=== PATIENT | female | born 1990 | race Asian ===

== ENCOUNTER 2020-07-06 06:30 | Day surgery (SDC) | payer MEDICAID ==
[~2020-07-06] VITALS: Ht 157.5 cm; Wt 76.1 kg
[2020-07-06] VITALS (17 sets, daily range): BP systolic 116–142; BP diastolic 71–89
[2020-07-06] MEDS ORDERED: normal saline 1000ml 1,000 ML IV PRN (06:50)
[2020-07-06 07:23] LABS: BASOPHILS % (AUTO) 0.4 % (0-1); EOSINOPHILS # (AUTO) 0.3 X10'3 (0-0.9); EOSINOPHILS % (AUTO) 2.4 % (0-6); HEMATOCRIT 31.2 % (35.0-45.0); HEMOGLOBIN 10.2 g/dl (12.0-16.0); LYMPHOCYTES # (AUTO) 1.7 X10'3 (1.1-4.8); LYMPHOCYTES % (AUTO) 14.1 % (21-51); MEAN CORPUSCULAR HEMOGLOBIN 26.4 PG (27.0-31.0); MEAN CORPUSCULAR HGB CONC 32.7 g/dL (33.0-36.5); MEAN CORPUSCULAR VOLUME 80.7 FL (78-98); MONOCYTES # (AUTO) 0.9 X10'3 (0-0.9); MONOCYTES % (AUTO) 7.1 % (2-12); NEUTROPHILS # (AUTO) 9.2 X10'3 (1.8-7.7); PLATELET COUNT 470 X10'3 (140-440); RED BLOOD COUNT 3.86 X10'6 (4.20-5.60); RED CELL DISTRIBUTION WIDTH 13.4 % (11.5-14.5); WHITE BLOOD COUNT 12.1 X10'3 (4.5-11.0)
[2020-07-06] MEDS ORDERED: INSU100C10 SQ (07:58)
[2020-07-06] MEDS ORDERED: CHOL10006 PO (07:58)
[2020-07-06] MEDS ORDERED: INSU100I31 SQ (07:58)
[2020-07-06] MEDS ORDERED: normal saline 1000ml 1,000 ML IV SCH (09:35)
[2020-07-06] MEDS ORDERED: midazolam 2 mg/2 ml injection ONE (11:24)
[2020-07-06] MEDS ORDERED: fentaNYL/PF 50MCG/1 ML 2ML syringe ONE (11:25)
== END 2020-07-06 14:55 | disposition home or self-care (01) ==
LOC: SSTAY O 06:30
PROVIDERS: ATTEND Radiology Diagnostic Radiology
DX: E11.22 Type 2 diabetes mellitus with diabetic chronic kidney disease (principal); I12.9 Hypertensive chronic kidney disease with stage 1 through stage 4 chronic kidney disease, or unspecified chronic kidney disease; N18.4 Chronic kidney disease, stage 4 (severe); J84.10 Pulmonary fibrosis, unspecified
CPT/HCPCS: 36415; 50200; 77012; 82948; 85025; 85610; J2250; J3010; J7030; 99152; 99153

== ENCOUNTER 2021-09-04 08:06 | Day surgery (SDC) | payer MEDICAID ==
[2021-08-30 14:55] LABS: BASOPHILS % (AUTO) 0.3 % (0-1); EOSINOPHILS # (AUTO) 0.5 X10'3 (0-0.9); EOSINOPHILS % (AUTO) 4.1 % (0-6); LYMPHOCYTES # (AUTO) 3.2 X10'3 (1.1-4.8); LYMPHOCYTES % (AUTO) 24.4 % (21-51); MEAN CORPUSCULAR HEMOGLOBIN 27.4 PG (27.0-31.0); MEAN CORPUSCULAR HGB CONC 32.9 g/dL (33.0-36.5); MEAN CORPUSCULAR VOLUME 83.3 FL (78-98); MEAN PLATELET VOLUME 7.2 FL (7.4-10.4); MONOCYTES # (AUTO) 0.8 X10'3 (0-0.9); MONOCYTES % (AUTO) 5.8 % (2-12); NEUTROPHILS # (AUTO) 8.5 X10'3 (1.8-7.7); NEUTROPHILS % (AUTO) 65.4 % (42-75); PRE OP HEMATOCRIT 28.8 % (35.0-45.0); PRE OP PLATELET COUNT 372 X10'3 (140-440); RED BLOOD COUNT 3.46 X10'6 (4.20-5.60); RED CELL DISTRIBUTION WIDTH 14.5 % (11.5-14.5)
[2021-08-30 15:02] LABS: PRE OP HEMOGLOBIN 9.5 g/dL (12.0-16.0)
[2021-08-30 15:07] LABS: ALBUMIN/GLOBULIN RATIO 0.6 (1.1-1.5); ALKALINE PHOSPHATASE 100 IU/L (46-116); BLOOD UREA NITROGEN 53 MG/DL (7-18); BUN/CREATININE RATIO 14.2 (6.6-38.0); CALCIUM 8.3 MG/DL (8.5-10.1); CHLORIDE 108 MMOL/L (99-107); CREATININE 3.72 MG/DL (0.40-0.90); PRE OP ALT 15 U/L (30-65); PRE OP ANION GAP 13 (8-16); PRE OP AST 16 U/L (10-37); PRE OP BILIRUB, TOTAL 0.1 MG/DL (0.0-1.0); PRE OP POTASSIUM 5.5 MMOL/L (3.4-5.1); PRE OP SODIUM 141 MMOL/L (135-145); TOTAL CARBON DIOXIDE 19.8 MMOL/L (24-32); TOTAL PROTEIN 8.1 G/DL (6.4-8.2); eGFR 14 ML/MIN
[2021-08-30 15:10] LABS: PRE OP GLUCOSE 232 MG/DL (70-104)
[2021-08-30 15:33] LABS: COLOR,URINE STRAW (Yellow); UA COLLECTION TYPE CLN CATCH MIDSTREAM
[2021-08-30 15:34] LABS: CLARITY,URINE SLIGHTLY CLOUDY (Clear); GLUCOSE, URINE 250 mg/dl (Neg); KETONES,URINE NEGATIVE (Neg); LEUKOCYTE ESTERASE ,URINE NEGATIVE (Neg); NITRITES, URINE NEGATIVE (Neg); OCCULT BLOOD,URINE MODERATE (Neg); PROTEIN,URINE 300 mg/dl (Neg); UROBILINOGEN,URINE 0.2 E.U/dL (0.2-1.0)
[2021-08-30 15:51] LABS: BACTERIA,URINE 1+ /HPF (Neg); MUCUS STRANDS NONE SEEN /LPF (Neg); SQUAMOUS EPITHELIAL CELL,UR MODERATE /LPF (FEW); WBC,URINE 0-4 /HPF (0-4)
[~2021-09-04] VITALS: Ht 157.5 cm; Wt 84.5 kg
[~2021-09-04 08:06] MED LIST: ATOR-2 PO; CHOL10006 PO; DILT-36 PO; INSU100C10 SQ; INSU100I31 SQ; cefazolin/dext.iso 2gm/50ml 50 ML IV ONE; famotidine 20mg tablet PO ONE; ringers solution, lacted 1,000 ML IV SCH
[2021-09-04 08:45] VITALS: BP 121/72
[2021-09-04] MEDS ORDERED: normal saline 500ml IV soln 500 ML IV SCH (09:05)
[2021-09-04 09:26] LABS: BASOPHILS % (AUTO) 0.4 % (0-1); EOSINOPHILS # (AUTO) 0.5 X10'3 (0-0.9); LYMPHOCYTES % (AUTO) 23.6 % (21-51); MEAN CORPUSCULAR HEMOGLOBIN 26.9 PG (27.0-31.0); MEAN CORPUSCULAR HGB CONC 32.5 g/dL (33.0-36.5); MEAN CORPUSCULAR VOLUME 82.9 FL (78-98); MEAN PLATELET VOLUME 7.3 FL (7.4-10.4); MONOCYTES # (AUTO) 0.7 X10'3 (0-0.9); MONOCYTES % (AUTO) 5.5 % (2-12); NEUTROPHILS # (AUTO) 8.5 X10'3 (1.8-7.7); NEUTROPHILS % (AUTO) 66.5 % (42-75); PRE OP HEMATOCRIT 27.7 % (35.0-45.0); PRE OP PLATELET COUNT 330 X10'3 (140-440); RED BLOOD COUNT 3.34 X10'6 (4.20-5.60); RED CELL DISTRIBUTION WIDTH 14.2 % (11.5-14.5)
[2021-09-04 10:25] LABS: URINE HCG NEGATIVE (NEG)
[2021-09-04 10:26] LABS: CLARITY,URINE SLIGHTLY CLOUDY (Clear); COLOR,URINE YELLOW (Yellow); GLUCOSE, URINE 250 mg/dl (Neg); PROTEIN,URINE >=1000 mg/dl (Neg); UA COLLECTION TYPE CLN CATCH MIDSTREAM
[2021-09-04 10:27] LABS: KETONES,URINE NEGATIVE (Neg); LEUKOCYTE ESTERASE ,URINE NEGATIVE (Neg); NITRITES, URINE NEGATIVE (Neg); OCCULT BLOOD,URINE MODERATE (Neg); UROBILINOGEN,URINE 0.2 E.U/dL (0.2-1.0)
[2021-09-04 10:42] LABS: BACTERIA,URINE 2+ /HPF (Neg); MUCUS STRANDS FEW /LPF (Neg); RBC,URINE 0-2 /HPF (0-2); SQUAMOUS EPITHELIAL CELL,UR MODERATE /LPF (FEW); WBC,URINE 0-4 /HPF (0-4)
[2021-09-04 10:43] LABS: HYALINE CASTS 0-3 /LPF (NEGATIVE)
[2021-09-04] MEDS ORDERED: ondansetron/PF 4mg/2ml inj IV PRN (11:20)
[2021-09-04] MEDS ORDERED: hydrALAZINE 20mg/ml inj. IV PRN (11:20)
[2021-09-04] MEDS ORDERED: fentaNYL/PF 50MCG/1 ML 2ML syringe IV PRN ×2 (11:20)
[2021-09-04] MEDS ORDERED: ringers solution, lacted 1,000 ML IV SCH (11:20)
[2021-09-04] MEDS ORDERED: labetalol 20mg/4ml (5mg/ml) syringe IV PRN (11:20)
[2021-09-04] MEDS ORDERED: morphine 4 MG/ML inj SYRINge IV PRN (11:20)
[2021-09-04] MEDS ORDERED: morphine 2 MG/ML inj. syringe IV PRN (11:20)
[2021-09-04] MEDS ORDERED: LIDOCAINE 1%/EPI 1:100,000 inj. 10 ML multi-dose vial ONE (11:28)
[2021-09-04] MEDS ORDERED: BUPIVAcaine/PF 2.5mg/ml (0.25%) 10ml vial ONE (11:28)
[2021-09-04] MEDS ORDERED: heparin 10,000 units/1 ML INJ ONE (11:28)
[2021-09-04] MEDS ORDERED: sevoflurane 250ml liquid IH ONE (11:50)
[2021-09-04] MEDS ORDERED: fentaNYL/PF 50MCG/1 ML 2ML syringe ONE (12:06)
[2021-09-04] MEDS ORDERED: midazolam 1 mg/ML 2ml injection ONE (12:06)
[2021-09-04] MEDS ORDERED: ondansetron/PF 4mg/2ml inj ONE (12:15)
[2021-09-04] MEDS ORDERED: propofol inj 20 ML IV ONE (12:40)
[2021-09-04] MEDS ORDERED: ePHEDrine 50MG/ML INJ. ONE (12:40)
[2021-09-04] MEDS ORDERED: LIDOcaine 2% (20mg/ml) 5ml vial ONE (12:40)
[2021-09-04 13:07] VITALS: BP 160/70
--- NOTE | 2021-09-04 13:07 | NUR ---
ASSUME CARE PT AWAKE TO NAME VSS NO DISTRESS DENIES PAIN IV 20G TO RIGHT HAND PATIENT IVF INFUSING ON PUMP AT TKO WITHOUT DIFF. BULKY DRESSING TO RIGHT ARM CDI, +CMS TO THE RIGHT HAND AND FINGERS. CONT TO MONITOR. Addendum: 09/04/21 at 1339 by Josephine Fay RN Amended: Links added.
[2021-09-04 13:20] VITALS: BP 153/84
[2021-09-04 13:30] VITALS: BP 146/88
--- NOTE | 2021-09-04 13:39 | NUR ---
PT MORE AWAKE PLACED ON RA SAT 97% DENIES PAIN ABLE TO ASSESS A B/T TO THE RIGHT ARM DRESSING CONT CDI. PT C/O NAUSEA ZOFRAN 4MG GIVEN CONT TO MONITOR. Addendum: 09/04/21 at 1341 by Josephine Fay RN Amended: Links added.
[2021-09-04 13:40] VITALS: BP 145/79
[2021-09-04 13:50] VITALS: BP 167/75
--- NOTE | 2021-09-04 13:55 | NUR ---
PT MORE AWAKE VSS NO PAIN STATES FEELS BETTER KELLY CRACKERS MOTHER AT BEDSIDE DC INSTR GIVEN NO ?'S OR CONCERNS MEETS CRITERIA TO GO HOME. Addendum: 09/04/21 at 1356 by Josephine Fay RN Amended: Links added.
== END 2021-09-04 14:07 | disposition home or self-care (01) ==
LOC: PAS 08:06
PROVIDERS: ATTEND Surgery
DX: E11.22 Type 2 diabetes mellitus with diabetic chronic kidney disease (principal); I12.0 Hypertensive chronic kidney disease with stage 5 chronic kidney disease or end stage renal disease; N18.6 End stage renal disease; D64.9 Anemia, unspecified; F15.10 Other stimulant abuse, uncomplicated; E55.9 Vitamin D deficiency, unspecified; F17.210 Nicotine dependence, cigarettes, uncomplicated; Z90.49 Acquired absence of other specified parts of digestive tract; Z98.890 Other specified postprocedural states; Z86.19 Personal history of other infectious and parasitic diseases; Z88.8 Allergy status to other drugs, medicaments and biological substances; Z79.4 Long term (current) use of insulin; Z79.899 Other long term (current) drug therapy; Z83.3 Family history of diabetes mellitus; Z82.49 Family history of ischemic heart disease and other diseases of the circulatory system
CPT/HCPCS: 36415; 36818; 80053; 81001; 81025; 82948; 85025; 93005; J1644; J2001; J2250; J2405; J2704; J3010; J3490; J7040; U0003; U0005; Z7506; Z7508; Z7512; A4618; A6449; A7000; J7120

== ENCOUNTER 2023-04-12 15:22 | Emergency (ER) | payer MEDICAID ==
[~2023-04-12] VITALS: Ht 157.5 cm; Wt 87.4 kg
[~2023-04-12 15:22] MED LIST changes: +BLOO-1718 TOP; +CALC0.5C8 PO; +HYDR-4069 PO; +MAGN400C PO; +PANT40TA54 PO; +SODI650T29 PO; +TRET20CR35 TOP; +[UNRECOGNIZED DRUG - CODE]; -cefazolin/dext.iso 2gm/50ml 50 ML IV ONE; -famotidine 20mg tablet PO ONE; -ringers solution, lacted 1,000 ML IV SCH
[2023-04-12 15:24] VITALS: BP 177/80
[2023-04-12] MEDS ORDERED: PANT-47 PO (22:06)
[2023-04-12] MEDS ORDERED: SUCR1TAB PO (22:06)
== END 2023-04-12 16:38 | disposition left against medical advice (07) ==
LOC: ER 15:22
DX: R10.9 Unspecified abdominal pain (principal); Z53.21 Procedure and treatment not carried out due to patient leaving prior to being seen by health care provider
CPT/HCPCS: 74176; 99281

== ENCOUNTER 2023-04-14 06:10 | Emergency (ER) | payer MEDICAID ==
[~2023-04-14] VITALS: Ht 157.5 cm; Wt 85.5 kg
[~2023-04-14 06:10] MED LIST changes: +PANT-47 PO; +SUCR1TAB PO
[2023-04-14 06:41] LABS: BASOPHILS % (AUTO) 0.2 % (0-1); EOSINOPHILS # (AUTO) 0.1 X10'3 (0-0.9); EOSINOPHILS % (AUTO) 0.5 % (0-6); HEMATOCRIT 31.8 % (35.0-45.0); HEMOGLOBIN 10.4 g/dl (12.0-16.0); LYMPHOCYTES # (AUTO) 2.6 X10'3 (1.1-4.8); LYMPHOCYTES % (AUTO) 15.3 % (21-51); MEAN CORPUSCULAR HEMOGLOBIN 27.6 PG (27.0-31.0); MEAN CORPUSCULAR HGB CONC 32.7 g/dL (33.0-36.5); MEAN CORPUSCULAR VOLUME 84.3 FL (78-98); MEAN PLATELET VOLUME 7.2 FL (7.4-10.4); MONOCYTES # (AUTO) 0.7 X10'3 (0-0.9); MONOCYTES % (AUTO) 4.2 % (2-12); NEUTROPHILS # (AUTO) 13.7 X10'3 (1.8-7.7); NEUTROPHILS % (AUTO) 79.8 % (42-75); PLATELET COUNT 330 X10'3 (140-440); RED BLOOD COUNT 3.78 X10'6 (4.20-5.60); RED CELL DISTRIBUTION WIDTH 15.5 % (11.5-14.5); WHITE BLOOD COUNT 17.1 X10'3 (4.5-11.0)
[2023-04-14 07:36] LABS: ALBUMIN 3.7 G/DL (3.4-5.0); ALBUMIN/GLOBULIN RATIO 0.9 (1.1-1.5); ANION GAP 16 (8-16); ASPARTATE AMINO TRANSFERASE 21 U/L (10-37); BILIRUBIN,TOTAL 0.4 MG/DL (0.1-1.0); BLOOD UREA NITROGEN 37 MG/DL (7-18); BUN/CREATININE RATIO 9.2 (10.0-20.0); CALCIUM 8.3 MG/DL (8.5-10.1); CHLORIDE 100 MMOL/L (99-107); CREATININE 4.01 MG/DL (0.40-0.90); GLUCOSE 172 MG/DL (70-104); POTASSIUM 3.7 MMOL/L (3.5-5.1); SODIUM 134 MMOL/L (135-145); TOTAL CARBON DIOXIDE 17.6 MMOL/L (24-32); eGFR 13 ML/MIN
[2023-04-14 07:37] LABS: ALANINE AMINOTRANSFERASE 13 U/L (12-78); ALKALINE PHOSPHATASE 83 IU/L (46-116)
[2023-04-14] MEDS ORDERED: diphenhydrAMINE 50 mg/ml inj IV ONE (08:00)
[2023-04-14] MEDS ORDERED: normal saline 1000ML IV soln IVB ONE (08:00)
[2023-04-14] MEDS ORDERED: LORazepam 2 mg/ml vial IV ONE (08:00)
[2023-04-14] MEDS ORDERED: haloperidol lactate 5mg/ml inj IM ONE (08:00)
[2023-04-14] MEDS ORDERED: LIDOcaine Viscous 15ml cup MM ONE (09:00)
[2023-04-14 11:19] VITALS: BP 155/85
[2023-04-15] MEDS ORDERED: HYDR-4070 PO (12:50)
[2023-04-15] MEDS ORDERED: METO5TAB85 PO (12:53)
[2023-04-15] MEDS ORDERED: LORA-269 PO (13:00)
== END 2023-04-14 11:53 | disposition home or self-care (01) ==
LOC: ER 06:11
DX: R10.13 Epigastric pain (principal); R11.2 Nausea with vomiting, unspecified; E11.22 Type 2 diabetes mellitus with diabetic chronic kidney disease; N18.9 Chronic kidney disease, unspecified; F15.90 Other stimulant use, unspecified, uncomplicated; Z72.89 Other problems related to lifestyle; Z90.49 Acquired absence of other specified parts of digestive tract; Z91.018 Allergy to other foods; Z79.4 Long term (current) use of insulin; Z79.899 Other long term (current) drug therapy
CPT/HCPCS: 36415; 71045; 80053; 82948; 83605; 83880; 84145; 84484; 85025; 93005; 96361; 96372; 96374; 96375; 99285; J1200; J1630; J2060; J7030; 96376

== ENCOUNTER 2023-04-15 10:35 | Emergency (ER) | payer MEDICAID ==
[~2023-04-15] VITALS: Ht 157.5 cm; Wt 100.0 kg
[2023-04-15 11:17] LABS: BASOPHILS % (AUTO) 0.3 % (0-1); EOSINOPHILS # (AUTO) 0.1 X10'3 (0-0.9); EOSINOPHILS % (AUTO) 0.9 % (0-6); HEMATOCRIT 33.4 % (35.0-45.0); HEMOGLOBIN 10.8 g/dl (12.0-16.0); LYMPHOCYTES # (AUTO) 2.4 X10'3 (1.1-4.8); LYMPHOCYTES % (AUTO) 15.4 % (21-51); MEAN CORPUSCULAR HEMOGLOBIN 27.7 PG (27.0-31.0); MEAN CORPUSCULAR HGB CONC 32.4 g/dL (33.0-36.5); MEAN CORPUSCULAR VOLUME 85.6 FL (78-98); MEAN PLATELET VOLUME 6.9 FL (7.4-10.4); MONOCYTES # (AUTO) 0.9 X10'3 (0-0.9); MONOCYTES % (AUTO) 5.7 % (2-12); NEUTROPHILS % (AUTO) 77.7 % (42-75); PLATELET COUNT 336 X10'3 (140-440); RED BLOOD COUNT 3.91 X10'6 (4.20-5.60); RED CELL DISTRIBUTION WIDTH 15.6 % (11.5-14.5); WHITE BLOOD COUNT 15.4 X10'3 (4.5-11.0)
[2023-04-15 11:30] LABS: ALANINE AMINOTRANSFERASE 11 U/L (12-78); ALBUMIN 3.9 G/DL (3.4-5.0); ALBUMIN/GLOBULIN RATIO 0.9 (1.1-1.5); ALKALINE PHOSPHATASE 85 IU/L (46-116); ANION GAP 14 (8-16); ASPARTATE AMINO TRANSFERASE 21 U/L (10-37); BILIRUBIN,TOTAL 0.4 MG/DL (0.1-1.0); BLOOD UREA NITROGEN 32 MG/DL (7-18); CALCIUM 8.3 MG/DL (8.5-10.1); CHLORIDE 101 MMOL/L (99-107); CREATININE 3.98 MG/DL (0.40-0.90); GLUCOSE 176 MG/DL (70-104); LIPASE 253 U/L (73-393); POTASSIUM 3.5 MMOL/L (3.5-5.1); SODIUM 135 MMOL/L (135-145); TOTAL CARBON DIOXIDE 20.5 MMOL/L (24-32); TOTAL PROTEIN 8.1 G/DL (6.4-8.2); eGFR 13 ML/MIN
[2023-04-15] MEDS ORDERED: LORazepam 2 mg/ml vial IV ONE (11:40)
[2023-04-15] MEDS ORDERED: metoclopramide 5 mg/ml inj IV ONE (11:42)
[2023-04-15] MEDS ORDERED: hyDRALAzine 10mg tablet PO ONE ×3 (11:43→13:35)
[2023-04-15 11:50] LABS: ETHANOL < 0.010 GM/DL (0.0-0.010)
[2023-04-15 12:17] LABS: PHOSPHORUS 2.4 MG/DL (2.3-4.5)
--- NOTE | 2023-04-15 12:46 | NUR ---
Received referral for consult. Met with patient in regards to alcohol use and to see if patient was interested in resources for treatment options. Patient stated that she drank 5 days ago and it was a one time binge. Patient stated that she has a lot of health problems and she knows she can't drink. I asked patient if she is interested in medication to help her with cravings in case she has the urge again and patient feels that she will be ok.
[2023-04-15] MEDS ORDERED: HYDR-4070 PO (12:50)
[2023-04-15] MEDS ORDERED: METO5TAB85 PO (12:53)
[2023-04-15] MEDS ORDERED: LORA-269 PO (13:00)
[2023-04-15] MEDS ORDERED: hyDRALAzine 10mg tablet PO SCH (13:35)
[2023-04-15 13:54] VITALS: BP 189/92
== END 2023-04-15 13:55 | disposition home or self-care (01) ==
LOC: ER 10:36
DX: E11.22 Type 2 diabetes mellitus with diabetic chronic kidney disease (principal); I12.0 Hypertensive chronic kidney disease with stage 5 chronic kidney disease or end stage renal disease; N18.5 Chronic kidney disease, stage 5; R10.84 Generalized abdominal pain; F15.10 Other stimulant abuse, uncomplicated; Z88.8 Allergy status to other drugs, medicaments and biological substances; Z79.899 Other long term (current) drug therapy
CPT/HCPCS: 36415; 74018; 76770; 80053; 80320; 83690; 84100; 85025; 96374; 96375; 99285; J2060; J2765

== ENCOUNTER 2023-04-17 10:37 | Inpatient (IN) | payer MEDICAID ==
[~2023-04-17] VITALS: Ht 157.5 cm; Wt 81.8 kg
[~2023-04-17 10:37] MED LIST changes: +HYDR-4070 PO; +LORA-269 PO; +METO5TAB85 PO
[2023-04-17] MEDS ORDERED: normal saline 1000ML IV soln IVB ONE (14:25)
[2023-04-17] MEDS ORDERED: normal saline 1000ml 1,000 ML IV ONE (14:25)
[2023-04-17] MEDS ORDERED: OLANZapine **IM** 10 mg inj. IM ONE (14:45)
[2023-04-17 15:02] LABS: BASOPHILS % (AUTO) 0.2 % (0-1); EOSINOPHILS # (AUTO) 0.1 X10'3 (0-0.9); EOSINOPHILS % (AUTO) 0.5 % (0-6); HEMATOCRIT 32.4 % (35.0-45.0); HEMOGLOBIN 10.5 g/dl (12.0-16.0); LYMPHOCYTES # (AUTO) 2.3 X10'3 (1.1-4.8); LYMPHOCYTES % (AUTO) 12.8 % (21-51); MEAN CORPUSCULAR HEMOGLOBIN 27.6 PG (27.0-31.0); MEAN CORPUSCULAR HGB CONC 32.3 g/dL (33.0-36.5); MEAN CORPUSCULAR VOLUME 85.5 FL (78-98); MEAN PLATELET VOLUME 6.8 FL (7.4-10.4); MONOCYTES # (AUTO) 0.9 X10'3 (0-0.9); MONOCYTES % (AUTO) 4.8 % (2-12); NEUTROPHILS # (AUTO) 14.9 X10'3 (1.8-7.7); NEUTROPHILS % (AUTO) 81.7 % (42-75); PLATELET COUNT 364 X10'3 (140-440); RED BLOOD COUNT 3.79 X10'6 (4.20-5.60); RED CELL DISTRIBUTION WIDTH 15.8 % (11.5-14.5); WHITE BLOOD COUNT 18.3 X10'3 (4.5-11.0)
[2023-04-17 15:13] LABS: CLARITY,URINE CLEAR (Clear); COLOR,URINE STRAW (Yellow); GLUCOSE, URINE 250 mg/dl (Neg); KETONES,URINE NEGATIVE (Neg); LEUKOCYTE ESTERASE ,URINE NEGATIVE (Neg); NITRITES, URINE NEGATIVE (Neg); OCCULT BLOOD,URINE NEGATIVE (Neg); PH,URINE 5.5 (4.8-8.0); PROTEIN,URINE 100 mg/dl (Neg); UROBILINOGEN,URINE 0.2 E.U/dL (0.2-1.0)
[2023-04-17 15:16] LABS: UA COLLECTION TYPE CLN CATCH MIDSTREAM
[2023-04-17 15:20] LABS: BACTERIA,URINE FEW /HPF (Neg); MUCUS STRANDS NONE SEEN /LPF (Neg); RBC,URINE NONE SEEN /HPF (0-2); SQUAMOUS EPITHELIAL CELL,UR FEW /LPF (FEW); WBC,URINE 0-4 /HPF (0-4)
[2023-04-17 15:28] LABS: ALANINE AMINOTRANSFERASE 11 U/L (12-78); ALBUMIN 3.9 G/DL (3.4-5.0); ALKALINE PHOSPHATASE 79 IU/L (46-116); ANION GAP 14 (8-16); ASPARTATE AMINO TRANSFERASE 18 U/L (10-37); BILIRUBIN,TOTAL 0.3 MG/DL (0.1-1.0); BLOOD UREA NITROGEN 37 MG/DL (7-18); BUN/CREATININE RATIO 7.6 (10.0-20.0); C-REACTIVE PROTEIN 0.15 MG/DL (0.0-0.5); CALCIUM 8.5 MG/DL (8.5-10.1); CHLORIDE 98 MMOL/L (99-107); CREATININE 4.89 MG/DL (0.40-0.90); GLUCOSE 176 MG/DL (70-104); LIPASE 291 U/L (73-393); MAGNESIUM 1.9 MG/DL (1.5-2.4); POTASSIUM 3.7 MMOL/L (3.5-5.1); SODIUM 132 MMOL/L (135-145); TOTAL CARBON DIOXIDE 19.8 MMOL/L (24-32); TOTAL PROTEIN 7.7 G/DL (6.4-8.2); eGFR 10 ML/MIN
[2023-04-17 15:29] LABS: URINE AMPHETAMINE SCREEN NEGATIVE (Neg); URINE BARBITUATE SCREEN NEGATIVE (Neg); URINE BENZODIAZEPINES SCREEN NEGATIVE (Neg); URINE CANNABINOID SCREEN NEGATIVE (Neg); URINE COCAINE SCREEN NEGATIVE (Neg); URINE METHADONE SCREEN NEGATIVE (Neg); URINE OPIATE SCREEN POSITIVE (Neg); URINE PHENCYCLIDINE SCREEN NEGATIVE (Neg)
[2023-04-17 15:40] LABS: ETHANOL < 0.010 GM/DL (0.0-0.010)
[2023-04-17] MEDS ORDERED: metoclopramide 5 mg/ml inj IV ONE (16:00)
[2023-04-17] MEDS ORDERED: pantoprazole 40 MG vial IV ONE (16:00)
[2023-04-17] MEDS ORDERED: LIDOcaine Viscous 15ml cup MM ONE (16:00)
[2023-04-17] MEDS ORDERED: mag hydrox/Alum hydrox/simeth 30ml oral suspension PO ONE (16:00)
[2023-04-17] MEDS ORDERED: pantoprazole 40MG/NS 100ML BAG 100 ML IV ONE (16:10)
[2023-04-17] MEDS ORDERED: magnesium 4gm in 100ml NS 100 ML IV PRN (18:15)
[2023-04-17] MEDS ORDERED: potassium Cl 40MEQ/1/2NS 520ml 520 ML IV PRN (18:15)
[2023-04-17] MEDS ORDERED: ondansetron/PF 4mg/2ml inj IV PRN (18:15)
[2023-04-17] MEDS ORDERED: acetaminophen 325mg tablet PO PRN (18:15)
[2023-04-17] MEDS ORDERED: magnesium hydroxide 30ml (MOM) UD suspension PO PRN (18:15)
[2023-04-17] MEDS ORDERED: potassium Cl 20 mEq SR tablet PO PRN ×2 (18:15)
[2023-04-17] MEDS ORDERED: magnesium 2GM in 50ml NS 50 ML IV PRN (18:15)
[2023-04-17] MEDS ORDERED: magnesium Cl slow-release 64mg tablet PO PRN (18:15)
[2023-04-17] MEDS ORDERED: mag hydrox/Alum hydrox/simeth 30ml oral suspension PO PRN (18:15)
[2023-04-17] MEDS: normal saline 1000ml 1,000 ML IV SCH (18:31)
[2023-04-17] MEDS ORDERED: haloperidol 5mg tablet PO PRN (19:05)
[2023-04-17] MEDS ORDERED: haloperidol lactate 5mg/ml inj IM PRN (19:05)
[2023-04-17] MEDS ORDERED: dextrose 50%-water 50ml dispensing syringe IV PRN (19:05)
[2023-04-17] MEDS: K and/or MAG REPLACEMENT MC SCH (19:10)
[2023-04-17] MEDS: pantoprazole 40MG/NS 100ML BAG 100 ML IV SCH (19:21)
[2023-04-17] MEDS: folic acid 1mg/0.2ml inj IV SCH (19:25)
[2023-04-17] MEDS: docusate sod 100mg capsule PO SCH (20:00)
--- NOTE | 2023-04-17 21:00 | NUR ---
Patient in room [facility]TH[facility] 4010. I have received report from Josefina ESPARZA and had the opportunity to ask questions and assume patient care.
[2023-04-17] MEDS: metoclopramide 5 mg/ml inj IV PRN (21:41)
[2023-04-17] MEDS: thiamine 100mg/ml 2ml inj. IV SCH (21:41)
[2023-04-17] MEDS: morphine 2 MG/ML inj. syringe IV PRN (21:41)
[2023-04-17 22:00] VITALS: BP 158/82
[2023-04-18] VITALS (11 sets, daily range): BP systolic 146–191; BP diastolic 68–104
[2023-04-18] MEDS: normal saline 1000ml 1,000 ML IV SCH (03:24)
[2023-04-18] MEDS: metoclopramide 5 mg/ml inj IV PRN (04:55)
[2023-04-18] MEDS: dextrose 5%-1/2 normal saline 1,000 ML IV SCH ×2 (05:01→16:35)
--- NOTE | 2023-04-18 06:26 | NUR ---
Patient in room ORTH[facility] 4010. I have received report from [VILMA Thakkar] and had the opportunity to ask questions and assume patient care.
[2023-04-18 06:42] LABS: BASOPHILS # (AUTO) 0.1 X10'3 (0-0.2); BASOPHILS % (AUTO) 0.4 % (0-1); EOSINOPHILS # (AUTO) 0.2 X10'3 (0-0.9); EOSINOPHILS % (AUTO) 1.6 % (0-6); HEMATOCRIT 25.3 % (35.0-45.0); HEMOGLOBIN 8.4 g/dl (12.0-16.0); LYMPHOCYTES # (AUTO) 2.6 X10'3 (1.1-4.8); LYMPHOCYTES % (AUTO) 19.2 % (21-51); MEAN CORPUSCULAR HGB CONC 33.4 g/dL (33.0-36.5); MEAN CORPUSCULAR VOLUME 83.9 FL (78-98); MEAN PLATELET VOLUME 6.9 FL (7.4-10.4); MONOCYTES # (AUTO) 0.8 X10'3 (0-0.9); MONOCYTES % (AUTO) 6.3 % (2-12); NEUTROPHILS # (AUTO) 9.7 X10'3 (1.8-7.7); NEUTROPHILS % (AUTO) 72.5 % (42-75); PLATELET COUNT 321 X10'3 (140-440); RED BLOOD COUNT 3.01 X10'6 (4.20-5.60); RED CELL DISTRIBUTION WIDTH 15.8 % (11.5-14.5); WHITE BLOOD COUNT 13.4 X10'3 (4.5-11.0)
[2023-04-18 06:52] LABS: ANION GAP 16 (8-16); BLOOD UREA NITROGEN 36 MG/DL (7-18); BUN/CREATININE RATIO 8.3 (10.0-20.0); CHLORIDE 106 MMOL/L (99-107); CREATININE 4.34 MG/DL (0.40-0.90); GLUCOSE 94 MG/DL (70-104); MAGNESIUM 1.9 MG/DL (1.5-2.4); POTASSIUM 3.2 MMOL/L (3.5-5.1); SODIUM 140 MMOL/L (135-145); TOTAL CARBON DIOXIDE 18.3 MMOL/L (24-32); eGFR 12 ML/MIN
--- NOTE | 2023-04-18 07:08 | NUR ---
PAGER ID: [phone] MESSAGE: Andrez Brownlee [id number]. Patient BP 182/87 automatic 198/86 manual. No BP meds ordered. Thank you, Irina [phone]
[2023-04-18] MEDS: K and/or MAG REPLACEMENT MC SCH ×2 (07:45→20:00)
[2023-04-18] MEDS: thiamine 100mg/ml 2ml inj. IV SCH ×3 (07:51→20:20)
[2023-04-18] MEDS: pantoprazole 40MG/NS 100ML BAG 100 ML IV SCH ×2 (07:51→20:22)
[2023-04-18] MEDS ORDERED: hydrALAZINE 20mg/ml inj. IV ONE (08:00)
[2023-04-18] MEDS: docusate sod 100mg capsule PO SCH ×2 (08:00→20:21)
[2023-04-18] MEDS: folic acid 1mg/0.2ml inj IV SCH (08:15)
[2023-04-18 08:18] LABS: OCCULT BLOOD STOOL POSITIVE (Neg)
[2023-04-18] MEDS ORDERED: potassium Cl 20 mEq SR tablet PO ONE (09:55)
[2023-04-18] MEDS: morphine 2 MG/ML inj. syringe IV PRN ×2 (10:09→20:20)
--- NOTE | 2023-04-18 10:24 | NUR ---
DM/malnutrition consults: Per EMR pt with T1DM, well controlled with most recent A1c 7.3% 04/10. Pt provided with DM education and RD contact information 04/11 at recent admit. No further education planned at this time though will remain available should pt have any questions. Pt unsure of wt loss though with decreased appetite/PO intake per malnutrition risk screen with RN. Unable to interview pt at this time as pt documented with N/V and abdominal pain. Most recent scaled wt hx in EMR is 90.5 kg taken 04/11 with a bed scale. Current documented wt is 81.82 kg though not scaled and it is unlikely that pt lost 8.68 kg in seven days. Pt currently NPO. No documented decrease in muscle strength or edema and pt with normal body habitus per physician note. Pt likely experienced some wt loss with decreased PO intake r/t N/V however pt currently lacks a minimum of two criteria for malnutrition. Will continue to follow and monitor s/s of malnutrition. Addendum: 04/18/23 at [address] Amended: Links added.
[2023-04-18] MEDS ORDERED: fentaNYL/PF 50MCG/1 ML 2ML syringe ONE (11:18)
[2023-04-18] MEDS ORDERED: LIDOcaine Viscous 15ml cup ONE (11:18)
[2023-04-18] MEDS ORDERED: MIDAZolam 1 MG/ML 5ML VIAL ONE (11:18)
[2023-04-18] MEDS ORDERED: LORA-269 PO (11:40)
[2023-04-18] MEDS ORDERED: PANT-47 PO (11:41)
[2023-04-18] MEDS ORDERED: MAGN400C PO (11:42)
[2023-04-18] MEDS ORDERED: SUCR1TAB PO (11:44)
[2023-04-18] MEDS ORDERED: HYDR-4070 PO (11:44)
[2023-04-18] MEDS ORDERED: METO5TAB85 PO (11:45)
[2023-04-18] MEDS: LORazepam 2 mg/ml vial IV PRN (14:07)
--- NOTE | 2023-04-18 15:46 | NUR ---
Patient back from GI lab.
--- NOTE | 2023-04-18 15:52 | NUR ---
PAGER ID: [phone] MESSAGE: Andrez Brownlee [id number]. Patient back from GI lab, recommendation to resume regular diet, ok to order carb control diet? Thank you, Irina [phone].
--- NOTE | 2023-04-18 16:51 | NUR ---
PAGER ID: [phone] MESSAGE: Toma Dao [id number]: Re: Kem hydralazine per ER discharge: increased Hydralazine to 50 mg po TID. Just want to verify you want this dose
--- NOTE | 2023-04-18 17:05 | NUR ---
Patient educated by both this nurse and rn charge that she is on a clear liquid diet. Patient found during rounding to be eating food that family brought in that was not clear liquid. Patient educated again that she is on a clear liquid diet, verbalizes understanding but still refusing to follow diet. Will continue to educate.
--- NOTE | 2023-04-18 17:26 | NUR ---
PAGER ID: [phone] MESSAGE: Tawanda Brownlee. Patient BP 177/104, verifying that you wanted the hydralyzine per ER DC at 50mg TID. Thank you, Irina [phone]
--- NOTE | 2023-04-18 18:00 | NUR ---
Per report from julio c stonen charge auditor Toma did not feel comfortable giving hydralazine that was ordered earlier by . BP currently elevated. Dayshift Hospitalist rounding on floor. is aware of elevated bp- no new orders at this time.
--- NOTE | 2023-04-18 18:23 | NUR ---
Problems reprioritized. Patient report given, questions answered & plan of care reviewed with VILMA Louise.
--- NOTE | 2023-04-18 20:36 | NUR ---
Pt. states she is not an alcoholic. She is concerned because she isx on our ETOH protocol. Not positive for alcohol on admit.
[2023-04-19] MEDS: LORazepam 2 mg/ml vial IV PRN (00:47)
[2023-04-19 04:25] LABS: BASOPHILS % (AUTO) 0.4 % (0-1); EOSINOPHILS # (AUTO) 0.3 X10'3 (0-0.9); EOSINOPHILS % (AUTO) 2.3 % (0-6); HEMATOCRIT 25.8 % (35.0-45.0); HEMOGLOBIN 8.6 g/dl (12.0-16.0); LYMPHOCYTES # (AUTO) 3.3 X10'3 (1.1-4.8); LYMPHOCYTES % (AUTO) 24.7 % (21-51); MEAN CORPUSCULAR HEMOGLOBIN 27.9 PG (27.0-31.0); MEAN CORPUSCULAR HGB CONC 33.2 g/dL (33.0-36.5); MEAN CORPUSCULAR VOLUME 84.2 FL (78-98); MEAN PLATELET VOLUME 6.8 FL (7.4-10.4); MONOCYTES % (AUTO) 7.3 % (2-12); NEUTROPHILS # (AUTO) 8.8 X10'3 (1.8-7.7); NEUTROPHILS % (AUTO) 65.3 % (42-75); PLATELET COUNT 329 X10'3 (140-440); RED BLOOD COUNT 3.07 X10'6 (4.20-5.60); RED CELL DISTRIBUTION WIDTH 15.9 % (11.5-14.5); WHITE BLOOD COUNT 13.4 X10'3 (4.5-11.0)
[2023-04-19 04:31] LABS: ALBUMIN 3.1 G/DL (3.4-5.0); ANION GAP 13 (8-16); BLOOD UREA NITROGEN 29 MG/DL (7-18); BUN/CREATININE RATIO 7.4 (10.0-20.0); CALCIUM 7.9 MG/DL (8.5-10.1); CHLORIDE 106 MMOL/L (99-107); CREATININE 3.91 MG/DL (0.40-0.90); GLUCOSE 127 MG/DL (70-104); MAGNESIUM 1.5 MG/DL (1.5-2.4); POTASSIUM 3.1 MMOL/L (3.5-5.1); SODIUM 140 MMOL/L (135-145); TOTAL CARBON DIOXIDE 21.3 MMOL/L (24-32); eGFR 13 ML/MIN
[2023-04-19] MEDS: dextrose 5%-1/2 normal saline 1,000 ML IV SCH (05:55)
[2023-04-19 06:30] VITALS: BP 175/84
--- NOTE | 2023-04-19 06:30 | NUR ---
RECEIVED REPORT FROM DEBURR OPERATOR. ASSUMED CARE OF PATIENT.
--- NOTE | 2023-04-19 06:42 | NUR ---
Gave report to ROJAS Boone
[2023-04-19] MEDS: thiamine 100mg/ml 2ml inj. IV SCH (07:32)
[2023-04-19] MEDS: folic acid 1mg/0.2ml inj IV SCH (07:33)
[2023-04-19] MEDS: pantoprazole 40MG/NS 100ML BAG 100 ML IV SCH (07:34)
[2023-04-19] MEDS: K and/or MAG REPLACEMENT MC SCH (08:00)
[2023-04-19] MEDS ORDERED: diltiazem CD 180mg cap (once-daily) PO SCH (08:45)
[2023-04-19] MEDS ORDERED: hydrALAZINE 25 MG tablet PO SCH (08:45)
[2023-04-19] MEDS ORDERED: pantoprazole 40mg Tablet.DR PO SCH (08:51)
[2023-04-19] MEDS ORDERED: atorvastatin 20mg tablet PO SCH (09:12)
[2023-04-19] MEDS ORDERED: magnesium oxide 400mg tablet PO SCH (09:23)
[2023-04-19] MEDS: docusate sod 100mg capsule PO SCH (09:33)
[2023-04-19 09:34] VITALS: BP_SYST 175
[2023-04-19] MEDS ORDERED: potassium Cl 20 mEq SR tablet PO STA (10:14)
[2023-04-19] MEDS ORDERED: calcitriol 0.25mcg capsule PO SCH (11:00)
--- NOTE | 2023-04-19 12:30 | NUR ---
PATIENT DISCHARGED HOME WITH AL BELONGINGS. IV REMOVED.DRESSING CDI. PAPER WORK SIGNED. NO BELONGINGS AT PHARMACY AT THIS TIME. EDICATION MATERIALS REGARDING GI BLEED AND DIABETES PROVIDED IN DC PAPER WORK. PATIENT ACCOMPANIED OUT BY STAFF WALKED AD PATEL TO FAMILIES VEHICLE. ALL NEDS MET BY STAFF.
[2023-04-19] MEDS ORDERED: sodium bicarbonate 650mg tablet PO SCH (13:00)
[2023-04-19] MEDS ORDERED: insulin Lispro (HumaLOG) vial - multi-dose SQ SCH (13:00)
[2023-04-19] MEDS ORDERED: sucralfate 1 gm tablet PO SCH (16:00)
[2023-04-19] MEDS ORDERED: LORazepam 1 MG tablet PO PRN (19:05)
[2023-04-19] MEDS ORDERED: LORazepam 2 mg/ml vial IV PRN (19:05)
[2023-04-19] MEDS ORDERED: LORazepam 1 MG tablet PO SCH (20:00)
[2023-04-19] MEDS ORDERED: insulin glargine (Lantus) pen - multi-dose SQ SCH (21:00)
[2023-04-19] MEDS ORDERED: TRETINOIN TP SCH (21:00)
[2023-04-20] MEDS ORDERED: pantoprazole 40mg Tablet.DR PO SCH (08:00)
[2023-04-21] MEDS ORDERED: LORazepam 1 MG tablet PO PRN (19:05)
[2023-04-21] MEDS ORDERED: LORazepam 2 mg/ml vial IV PRN (19:05)
[2023-04-22] MEDS ORDERED: folic acid 1mg tablet PO SCH (08:00)
[2023-04-22] MEDS ORDERED: thiamine 100mg tablet PO SCH (08:00)
== END 2023-04-19 14:23 | disposition home or self-care (01) | DRG 48 ==
LOC: ER 10:38 → ED HOLD 18:17 → EDBEDREQ 20:29 → ORTHO 4S 21:10
PROVIDERS: ADMIT Family Medicine; ATTEND Family Medicine
PROC: 0DB98ZX Excision of Duodenum, Via Natural or Artificial Opening Endoscopic, Diagnostic (ICD-10-PCS; principal; 2023-04-18)
DX: E10.43 Type 1 diabetes mellitus with diabetic autonomic (poly)neuropathy (principal); I12.0 Hypertensive chronic kidney disease with stage 5 chronic kidney disease or end stage renal disease; E10.22 Type 1 diabetes mellitus with diabetic chronic kidney disease; E87.1 Hypo-osmolality and hyponatremia; E78.5 Hyperlipidemia, unspecified; D72.829 Elevated white blood cell count, unspecified; K31.84 Gastroparesis; K29.70 Gastritis, unspecified, without bleeding; N18.5 Chronic kidney disease, stage 5; F10.239 Alcohol dependence with withdrawal, unspecified; F41.9 Anxiety disorder, unspecified; Z88.8 Allergy status to other drugs, medicaments and biological substances; Z90.49 Acquired absence of other specified parts of digestive tract
CPT/HCPCS: 36415; 43239; 74018; 80048; 80053; 80305; 80320; 81001; 82272; 82948; 83605; 83690; 83735; 84145; 85025; 86140; 87081; 93975; 99152; 99285; A4620; C9113; G0378; J0360; J1815; J2060; J2250; J2270; J2765; J3010; J3411; J3490; J7030

== ENCOUNTER 2023-10-17 02:13 | Emergency (ER) | payer MEDICAID ==
[~2023-10-17] VITALS: Ht 157.5 cm; Wt 83.6 kg
[~2023-10-17 02:13] MED LIST changes: -HYDR-4069 PO; -PANT40TA54 PO; -[UNRECOGNIZED DRUG - CODE]
[2023-10-17 02:23] VITALS: BP 155/79; PULSE 92; RESP 18; TEMP 97.9; O2SAT 99
== END 2023-10-17 03:12 | disposition left against medical advice (07) ==
LOC: ER 02:14
DX: H57.11 Ocular pain, right eye (principal); Z53.21 Procedure and treatment not carried out due to patient leaving prior to being seen by health care provider
CPT/HCPCS: 99281

== ENCOUNTER 2025-09-05 02:36 | Emergency (ER) | payer MEDICAID ==
[~2025-09-05] VITALS: Ht 162.6 cm; Wt 90.9 kg
[~2025-09-05 02:36] MED LIST changes: -HYDR-4070 PO; +HYDR50TA46 PO
--- NOTE | 2025-09-05 02:54 | Physician Documentation ---
History of Present Illness ~ Chief Complaint: Allergic Reaction Stated Complaint: ALLERGIC REACTION Time Seen by MD: 02:51 Primary Medical Doctor: Vik Mclain MD HPI Patient presents to the emergency room with a allergic reaction. Patient states she was eating Dragon fruit at about 11:00 p.m. began experiencing some tingling in her mouth in his symptoms progressed. Medication Reconciliation Allergies: Coded Allergies: almond oil (Verified Allergy, Unknown, 09/05/25) Scheduled Atorvastatin Calcium (Atorvastatin Calcium), 1 TAB PO DAILY, (Reported) Calcitriol (Calcitriol), 1 CAP PO DAILY, (Reported) Cholecalciferol (Vitamin D), Unknown Dose PO weekly, (Reported) Diltiazem HCl (Diltiazem 24Hr Cd), 1 CAP PO DAILY, (Reported) Hydralazine HCl (Hydralazine HCl), 1 TAB PO Q8H, (Reported) Insulin Glargine,Hum.rec.anlog (Basaglar Kwikpen U-100), 50 UNITS SQ HS, (Reported) Insulin Lispro (Humalog), 18 UNITS SQ TIDWM, (Reported) Lorazepam (Ativan), 1 TAB PO Q12H, (Reported) Magnesium Oxide (Magnesium), 1 CAP PO DAILY, (Reported) Metoclopramide HCl (Reglan), 1 TAB PO Q8H, (Reported) Pantoprazole Sodium (PROTONIX tablet), 40 MG PO DAILY, (Reported) Sodium Bicarbonate (Antacid), 2 TAB PO TID, (Reported) Sucralfate (Sucralfate), 1 TAB PO Q8H, (Reported) Tretinoin (Tretinoin), 1 APPLIC TOP HS, (Reported) Durable Medical Equipment Blood-Glucose Sensor (Dexcom G6), EA TOP, (Reported), (DME) Past Medical History Past Medical History: Hypertension, , Chronic Kidney Disease, Diabetes Past Surgical History: cholecystectomy Alcohol Use: Occasionally Drug Use: methamphetamine Lives with: Family Lives In: Home Review of Systems ROS All review of systems negative except as per HPI Physical Exam Vital Signs: Temperature: 97.8, Source: Temporal, Heart Rate: 104, Respiratory Rate: 24, BP: 136/72, Pulse Oximetry: 94, Weight: 90.910 Oxygen Flow Rate: 0 Physical Exam General: Patient is awake, alert, oriented x4 in no acute distress Head: Normocephalic and atraumatic. Eyes: Conjunctival normal. EOMI. PERRL. ENT: Mucous membranes moist. Neck: Supple, trachea is midline. Chest: Clear to auscultation bilaterally without rales, rhonchi, or wheezes. There is no accessory muscle use or retractions. Cardiac: RRR without murmurs, gallops, or rubs. Skin: Diffuse rash noted Progress Results/Orders Results/Orders Completed Orders - GIOVANNI TOWNSEND MD Epinephrine Inj (Adrenalin Inj) (09/05/25 02:55) Diphenhydramine Inj (Benadryl Inj.) (09/05/25 02:55) Famotidine/Pf Iv Inj (Pepcid Iv Inj) (09/05/25 02:55) Methylprednisolone Sod Succ (Solumedrol (09/05/25 02:55) Normal Saline 1000ml (0.9% Sodium Chlori (09/05/25 02:51) Triamcinolone Acet 40mg/Ml Inj (Kenalog- (09/05/25 02:55) Medications Received in ER Medications (Trade) Dose Ordered Sig/Pamela Route PRN Reason Start Time Stop Time Status Last Admin Dose Admin (Adrenalin inj) 0.3 mg ONCE ONCE SQ 09/05/25 02:55 09/05/25 02:56 DC 09/05/25 03:02 0.3 MG (Benadryl inj.) 50 mg ONCE ONCE IV 09/05/25 02:55 09/05/25 02:56 DC 09/05/25 02:57 50 MG (Pepcid IV inj) 20 mg ONCE ONCE IV 09/05/25 02:55 09/05/25 02:56 DC 09/05/25 03:00 20 MG (SoluMEDROL 125mg inj) 125 mg ONCE ONCE IV 09/05/25 02:55 09/05/25 02:56 DC 09/05/25 02:58 125 MG (0.9% sodium chloride (NS) 1000ml IV soln) 1,000 ml ONCE STAT IVB 09/05/25 02:51 09/05/25 02:52 DC 09/05/25 03:10 1,000 ML (Kenalog-40 inj) 40 mg ONCE ONCE IM 09/05/25 02:55 09/05/25 03:05 DC 09/05/25 03:08 40 MG Vital Signs 09/05/25 09/05/25 09/05/25 02:38 03:06 03:10 Temp 97.8 97.8 Pulse 104 102 Resp 24 16 B/P (MAP) 136/72 164/82 (109) Pulse Ox 94 98 O2 Flow Rate 0 0 Medical Decision Making Additional information obtaine: N/A Findings Patient presented to the emergency room with the parent allergic reaction. Steroids and epinephrine administered immediately with significant improvement of symptoms. Patient was monitored for an additional time with no return/rebound symptoms. Believe she will do well on outpatient basis. She has been advised to avoid Dragon fruit Differential Dx:Considerations: Include: Anaphylaxis, Angioedema, Bronchospasm, Contact dermatitis, Drug reaction, Hypotension, Latex allergy, Renal failure, Respiratory failure, Shock, Urticaria, Other Departure Disposition: 01 HOME / SELF CARE / HOMELESS Impression: Primary Impression: Acute allergic reaction Condition: Improved Discharge Instructions: Anaphylactic Reaction, Adult, [id number] Additional Instructions: Do not eat Dragon fruit ever again Referrals: NO PRIMARY CARE PROVIDER (PCP) Prescriptions Epinephrine (Epipen 2-Juan A) 0.3 Mg/0.3 Ml Auto.injct 1 SYR IM ONCE for 1 Day, #1 PKT 0 Refills Prov: GIOVANNI TOWNSEND MD 09/05/25 Signature Scribe Signature: No scribe Attestation: The note accurately reflects work and decisions made by me.Giovanni Townsend MD 09/05/25 05:08 GIOVANNI TOWNSEND MD Sep 05, 2025 02:54
[2025-09-05] MEDS: famotidine/PF 10 mg/ml inj IV ONE (03:00)
[2025-09-05] MEDS: triamcinolone acetonide 40mg/ml inj IM ONE (03:08)
[2025-09-05 03:10] VITALS: TEMP 97.8
[2025-09-05] MEDS: normal saline 1000ML IV soln IVB STA (03:10)
[2025-09-05] MEDS ORDERED: EPIN0.3P3 IM (05:08)
[2025-09-05 05:17] VITALS: BP 122/68
[2025-09-05 06:29] VITALS: PULSE 87; RESP 18; O2SAT 94
== END 2025-09-05 10:00 | disposition home or self-care (01) ==
LOC: ER 02:36
DX: T78.49XA Other allergy, initial encounter (principal); I12.9 Hypertensive chronic kidney disease with stage 1 through stage 4 chronic kidney disease, or unspecified chronic kidney disease; E11.22 Type 2 diabetes mellitus with diabetic chronic kidney disease; N18.9 Chronic kidney disease, unspecified; F15.90 Other stimulant use, unspecified, uncomplicated; Z90.49 Acquired absence of other specified parts of digestive tract; Z88.8 Allergy status to other drugs, medicaments and biological substances; Z79.899 Other long term (current) drug therapy; Z72.89 Other problems related to lifestyle; X58.XXXA Exposure to other specified factors, initial encounter
CPT/HCPCS: 96361; 96372; 96374; 96375; 99284; J0169; J1200; J2919; J3301; J3490; J7030